=== PATIENT | male | born 1985 | race Caucasian/White ===

== ENCOUNTER 2016-08-19 23:26 | Emergency (ER) | payer MEDICARE, MEDICAID ==
[~2016-08-19] VITALS: Ht 188 cm; Wt 92.3 kg
[~2016-08-19 23:26] MED LIST: ALBU8.5H2 INHALATION; AMOX-366 PO; AZIT500T PO; BENZ-12 PO; CLOZ50TA PO; COG1 PO; DEP500ER PO; DIVA250T12 PO; DSS100 PO; KLO1T PO; LEVO500T16 PO; ZIT250 PO; [UNRECOGNIZED DRUG - CODE] PO
[2016-08-19 23:34] VITALS: BP 130/79; PULSE 115; RESP 16; O2SAT 95
[2016-08-19 23:53] VITALS: BP 130/79; PULSE 115; RESP 16; O2SAT 95
--- NOTE | 2016-08-20 00:08 | ED.REPORT ---
HPI-General Illness Date of Service Aug 20, 2016 ED Provider: Vince Marie MD Patient is a 30 year old male with a history of insomnia, schizophrenia, bipolar disorder, and anxiety who presents to the ED complaining of insomnia that has been going on for a few months. He reports that he is not on any sleep medication and that it takes 3-5 hours to fall asleep. Patient states "to be honest, I probably shouldn't be here, I know this could be done in the local clinic". He realizes that he should have waited until tomorrow to see a doctor, but he only realized this once he arrived in the ED. The patient states that he was "tired of not sleeping". He is followed by [facility] in [place] but does not have a CPIT team. The patient has previously had a sleep study. The patient reports a subjective fever and that this keeps him awake. He denies cough, shortness of breath, chest pain, or any other symptoms. Patient is a former cigarette smoker. He denies any illicit drug use. Patient states that he is taking all of his psychiatric medications as prescribed. Nursing Notes Stated Complaint: FEVER Chief Complaint: General Complaint Nursing Notes Reviewed: Yes Allergies: Coded Allergies: No Known Allergies (Verified Allergy, Unknown, 01/05/16) Scheduled Amoxicillin/Clav K 875-125 mg (Augmentin 875-125 mg) 1 Each Tablet 1 TABLET PO BID Azithromycin (Zithromax) 500 Mg Tablet 500 MG PO DAILY Azithromycin (Zithromax) 250 Mg Tablet 250 MG PO DAILY Benztropine Mes-Expunged Drug, Do Not Renew! (Benztropine Mes-Expunged Drug, Do Not Renew!) 1 Mg Tablet 1 MG PO BID Parkinson's Dose 1-2 mg Xtrapyramidal dose 1-4 mg DAILY-BID Clonazepam (Clonazepam) 1 Mg Tablet 1 MG PO BID Clozapine (Clozapine) 50 Mg Tablet 50 MG PO DAILY Clozapine-Expunged Drug, Do Not Renew! (Clozapine-Expunged Drug, Do Not Renew!) 100 Mg Tablet 150 MG PO QAM 1.5 tab in am, 3 tab at hs Clozapine-Expunged Drug, Do Not Renew! (Clozapine-Expunged Drug, Do Not Renew!) 100 Mg Tablet 300 MG PO HS 1.5 TAB QM & 3 TAB HS Divalproex Sod-Expunged Drug, Do Not Renew! (Divalproex Sod-Expunged Drug, Do Not Renew!) 500 Mg Tablet 500 MG PO BID TAKE @ NOON & BEDTIME - DO NOT CRUSH OR CHEW Divalproex-Expunged Drug, Do Not Renew! (Divalproex ER-Expunged Drug, Do Not Renew!) 250 Mg Tab.sr.24h 250 MG PO HS Docusate Sod-Expunged Drug, Do Not Renew! (Docusate Sod-Expunged Drug, Do Not Renew!) 100 Mg Capsule 100 MG PO bedtime TAKE EVERY AM & BEDTIME Levofloxacin (Levaquin) 500 Mg Tablet 500 MG PO DAILY Scheduled PRN Albuterol HFA (Proair HFA) 8.5 Gm Hfa.aer.ad 2 PUFFS INHALATION Q4H PRN PRN For Shortness of Breath Benzonatate (Tessalon Perle) 100 Mg Capsule 100 MG PO TID PRN PRN For Cough General Time Seen by MD: 00:08 Chief Complaint Other (insomnia) Hx Obtained From: Patient Arrived By: Walk-in Sudden in Onset?: No Onset Occurred: More than a week ago... (2 months) Recent Healthcare: Recent doctor visit Similar Sx Previous: Yes Past Medical History Patient History: FHx: bipolar disorder Past Medical History Notes: Reviewed and documentated persistent tachycardia since 2011. Past Medical History Bipolar mood disorder pneumonia Schizophrenia Psychosis seizure disorder anxiety panic attacks Reports: Asthma, Mental illness Past Surgical History No major surgeries Smoking History Former Smoker (quit April 2016) Social History The patient lives in an apartment alone. Alcohol Use: Denies alcohol use Drug Use: Denies drug use Other Social History: Lives alone, Local resident Ambulatory Status Independent Review of Systems Full Review of Systems Constitutional: Reports: Fever (subjective fever) Respiratory: Denies: Non-productive cough, Shortness of breath Cardiovascular: Denies: Chest pain Psychiatric: Reports: Insomnia Complete sys rev & neg: except as marked. Physical Exam Vital Signs Vital Signs Date Time Temp Pulse Resp B/P Pulse Ox O2 Delivery O2 Flow Rate FiO2 08/20/16 01:19 36.9 107 20 128/84 98 Room Air 08/19/16 23:53 36.4 115 16 130/79 95 08/19/16 23:34 36.4 115 16 130/79 95 Room Air Initial VS: Reviewed, Vital signs abnormal General/Constitutional: Awake, Alert, No acute distress Head / Eyes: Normocephalic, PERRL, EOMI ENT: Airway patent, Mucous membranes moist Neck: Supple Respiratory / Chest: Breath sounds NL, Breath sounds = bilat, No respiratory distress, No rales, No rhonchi, No wheezing Cardiovascular: Heart rate NL, Regular rhythm, Heart sounds NL, No murmurs Abdomen: Soft, Non-tender Skin: Color NL, Warm, Dry Neurologic: Oriented X3, Speech NL, No motor deficits, No sensory deficits Psychiatric: Affect NL, Mood NL, Not suicidal, Not homicidal not manic Re-Eval/Medical Decision Med Decision/Clinical Course 30-year-old male well-known to me with a history of schizophrenia. He has anxiety and insomnia. He stated that he had a fever but in closer discussion it is more of a feeling of unrest or agitation. He has no significant exam findings. He was given a single dose of hydroxyzine to take on discharge so he can sleep. Source of Hx: Old records Time of Eval: 00:55 Re-Evaluation/Progress Note: Discussed plan for treatment and discharge. The patient understands and agrees to the plan for discharge. All questions were addressed. Return to the ED warnings given. Counseled Regarding: Diagnosis, Need for follow-up, When/why to return to ED Discharge & Departure Primary Impression: Insomnia Disposition: Home Discharge Condition All VS Reviewed: Yes Condition: Stable Additional Instructions: Hydroxyzine 50 mg now to help her sleep. Talk to your doctor tomorrow about non -addicting sleep medications. Find out the after hours call number for your providers so you can call them instead of coming to the emergency room. Referrals: Adithya Moreland MD (PCP) Scribe Attestation Portions of this note were transcribed by Dinora Bennett and Alysia Byrd. I, Dr. Marie personally performed the history, physical exam and medical decision-making; I reviewed and confirmed the accuracy of the information in the transcribed note. Signed by: Dinora Bennett and Alysia Byrd, Scribe, and 0321. copies to: Adithya Moreland MD, Howard L MD Aug 20, 2016 00:08 Vernell Bennett Aug 20, 2016 00:58 Alysia Byrd Aug 20, 2016 03:21
[2016-08-20 01:19] VITALS: BP 128/84; PULSE 107; RESP 20; O2SAT 98
== END 2016-08-20 01:34 | disposition home or self-care (01) ==
LOC: SED 23:26 → EDBD 23:26 → EDUNIT# 23:26 → SED 08-20 01:34
DX: G47.00 Insomnia, unspecified (principal); F20.9 Schizophrenia, unspecified; F31.9 Bipolar disorder, unspecified; F41.0 Panic disorder [episodic paroxysmal anxiety]; J45.909 Unspecified asthma, uncomplicated; Z87.891 Personal history of nicotine dependence; Z87.01 Personal history of pneumonia (recurrent)
CPT/HCPCS: 99283; Q0177

== ENCOUNTER 2016-09-23 22:26 | Emergency (ER) | payer MEDICARE, MEDICAID ==
[~2016-09-23] VITALS: Ht 188 cm; Wt 108.2 kg
[2016-09-23 23:05] VITALS: BP 132/84; PULSE 114; RESP 16; O2SAT 95
[2016-09-24] MEDS ORDERED: 0.9% Sodium Chloride 1,000 ML IV ONE (00:14)
[2016-09-24] MEDS ORDERED: Ondansetron 2 mg/mL 2 mL Inj IVPUSH ONE (00:15)
--- NOTE | 2016-09-24 00:34 | ED.REPORT ---
HPI-Abd Pain M Under 40 Date of Service September 24, 2016 ED Provider: James Cruz MD Patient is a 30 year old male with a history of bipolar disorder who presents to the ED via EMS due to intermittent stomach pain onset 2129. Associated symptoms include a subjective fever and feeling constipated. He denies diarrhea or dysuria. The patient reports that the episode of pain lasted 30 minutes and describes it as a dull ache. Patient states that he is normally a little constipated. He is previously presented with constipation requiring cleaning out with GoLYTELY. The pain tonight has since resolved. Nursing Notes Stated Complaint: ABDOMINAL PAIN Chief Complaint: Male Abdominal Pain Nursing Notes Reviewed: Yes Allergies: Coded Allergies: No Known Allergies (Verified Allergy, Unknown, 01/05/16) Scheduled Amoxicillin/Clav K 875-125 mg (Augmentin 875-125 mg) 1 Each Tablet 1 TABLET PO BID Azithromycin (Zithromax) 500 Mg Tablet 500 MG PO DAILY Azithromycin (Zithromax) 250 Mg Tablet 250 MG PO DAILY Benztropine Mes-Expunged Drug, Do Not Renew! (Benztropine Mes-Expunged Drug, Do Not Renew!) 1 Mg Tablet 1 MG PO BID Parkinson's Dose 1-2 mg Xtrapyramidal dose 1-4 mg DAILY-BID Clonazepam (Clonazepam) 1 Mg Tablet 1 MG PO BID Clozapine (Clozapine) 50 Mg Tablet 50 MG PO DAILY Clozapine-Expunged Drug, Do Not Renew! (Clozapine-Expunged Drug, Do Not Renew!) 100 Mg Tablet 150 MG PO QAM 1.5 tab in am, 3 tab at hs Clozapine-Expunged Drug, Do Not Renew! (Clozapine-Expunged Drug, Do Not Renew!) 100 Mg Tablet 300 MG PO HS 1.5 TAB QM & 3 TAB HS Divalproex Sod-Expunged Drug, Do Not Renew! (Divalproex Sod-Expunged Drug, Do Not Renew!) 500 Mg Tablet 500 MG PO BID TAKE @ NOON & BEDTIME - DO NOT CRUSH OR CHEW Divalproex-Expunged Drug, Do Not Renew! (Divalproex ER-Expunged Drug, Do Not Renew!) 250 Mg Tab.sr.24h 250 MG PO HS Docusate Sod-Expunged Drug, Do Not Renew! (Docusate Sod-Expunged Drug, Do Not Renew!) 100 Mg Capsule 100 MG PO bedtime TAKE EVERY AM & BEDTIME Lactulose (Lactulose) 20 Gm/30 Ml Solution 20 GM PO TID Levofloxacin (Levaquin) 500 Mg Tablet 500 MG PO DAILY Scheduled PRN Albuterol HFA (Proair HFA) 8.5 Gm Hfa.aer.ad 2 PUFFS INHALATION Q4H PRN PRN For Shortness of Breath Benzonatate (Tessalon Perle) 100 Mg Capsule 100 MG PO TID PRN PRN For Cough General Time Seen by MD: 22:46 Chief Complaint Abdominal pain Hx Obtained From: Patient Arrived By: Ambulance Sudden in Onset?: Yes Onset Occurred: 1 - 4 hours ago Symptom Duration: Intermittent Progression since Onset: Resolved Location: : Diffuse Quality: Aching, Dull Severity: Current: No pain currently Recent Healthcare: No recent hospitalization, Recent doctor visit Similar Sx Previous: Yes Past Medical History Patient History: FHx: bipolar disorder Past Medical History Notes: Reviewed and documentated persistent tachycardia since 2011. Past Medical History Bipolar mood disorder pneumonia Schizophrenia Psychosis seizure disorder anxiety panic attacks Reports: Asthma, Mental illness Past Surgical History No major surgeries Smoking History Former Smoker Social History The patient lives in an apartment alone. Alcohol Use: Denies alcohol use Drug Use: Denies drug use Other Social History: Lives alone, Local resident Ambulatory Status Independent Review of Systems Constitutional: Reports: Fever (subjective) Respiratory: Denies: Non-productive cough, Shortness of breath GI: Reports: Abdominal pain, Constipation, Denies: Diarrhea Male: Denies Dysuria Complete sys rev & neg: except as marked. Physical Exam Initial Vital Signs Vital Signs (First) Date Time Temp Pulse Resp B/P Pulse Ox O2 Delivery O2 Flow Rate FiO2 09/23/16 23:05 36.8 114 16 132/84 95 Room Air Initial VS: Reviewed General/Constitutional: Awake, Alert, No acute distress Respiratory / Chest: Atraumatic, Breath sounds NL, Breath sounds = bilat, No respiratory distress Cardiovascular: Heart rate NL, Regular rhythm, Heart sounds NL Abdomen: Atraumatic, Soft, Non-tender Back: Atraumatic, Full range of motion Head / Eyes: Atraumatic, Normocephalic, PERRL, EOMI Neurologic: Oriented X3, Speech NL, No motor deficits, No sensory deficits Skin: Atraumatic, Color NL, No rash, Warm, Dry Psychiatric: Affect NL, Mood NL Interpretation & Diagnostics Lab Results Interpretation Result Diagram: 09/24/16 0034 09/24/16 0034 Test 09/24/16 00:34 09/24/16 00:45 09/24/16 00:55 09/24/16 01:04 White Blood Count 6.5th/mm3 (3.8-10.1) Red Blood Count 4.60mil/mm3 (4.40-5.80) Hemoglobin 13.9g/dL (13.8-17.2) Hematocrit 40.9% (41.0-50.0) Mean Corpuscular Volume 88.9fL (81-100) Mean Corpuscular Hemoglobin 30.2pg (27.0-35.0) Mean Corpuscular Hemoglobin Concent 34.0% (32.0-37.0) Red Cell Distribution Width 12.9% (12.3-15.4) Platelet Count 225bil/L (150-400) Neutrophils (%) (Auto) 47.8% (40-74) Lymphocytes (%) (Auto) 34.9% (14-46) Monocytes (%) (Auto) 14.0% (4-12) Eosinophils (%) (Auto) 2.0% (0-5) Basophils (%) (Auto) 0.5% (0-3) Prothrombin Time 10.6sec (8.1-12.5) Prothromb Time International Ratio 0.99ratio Sodium Level 137mEq/L (134-144) Potassium Level 4.1mEq/L (3.5-5.2) Chloride Level 98mEq/L (97-108) Carbon Dioxide Level 25mmol/L (18-29) Blood Urea Nitrogen 11mg/dL (6-20) Creatinine 0.76mg/dL (0.76-1.27) Estimat Glomerular Filtration Rate 130mL/min (>59) Glucose Level 95mg/dL (60-99) Calcium Level 9.2mg/dL (8.5-10.1) Magnesium Level 2.2mg/dL (1.6-2.6) Total Bilirubin 0.2mg/dL (0.0-1.2) Aspartate Amino Transf (AST/SGOT) 23U/L (0-50) Alanine Aminotransferase (ALT/SGPT) 21U/L (0-44) Alkaline Phosphatase 41U/L (25-150) Total Protein 7.3g/dL (6.4-8.4) Albumin 4.7g/dL (3.4-5.0) Lipase 19U/L (13-60) Hold [place] Top Tube Received (Received) Lactic Acid Level 2.3mmol/L (0.4-2.0) Urine Color Dark yellow (YELLOW) Urine Appearance Clear (CLEAR,HAZY) Urine pH 7.5 (5.0-8.0) Urine Specific [place] 1.015 (1.003-1.035) Urine Protein Negativemg/dL (NEG,TRACE) Urine Glucose (UA) Negativemg/dL (NEGATIVE) Urine Ketones Tracemg/dL (NEGATIVE) Urine Occult Blood Negative (NEGATIVE) Urine Nitrite Negative (NEGATIVE) Urine Bilirubin Negative (NEGATIVE) Urine Urobilinogen 1.0mg/dL (NORMAL) Urine Leukocyte Esterase Negative (NEGATIVE) Urine RBC 0-2/hpf (0-2) Urine WBC 0-5/hpf (0-5) Urine Epithelial Cells None/hpf (NONE-MOD) Urine Crystals None seen (NONE SEEN) Urine Bacteria None/hpf (NONE-FEW) Urine Hyaline Casts None/lpf (NONE) Urine Granular Casts None seen (NONE SEEN) Urine Waxy Casts None seen (NONE SEEN) Urine Red Blood Cell Casts None seen (NONE SEEN) Urine White Blood Cell Casts None seen (NONE SEEN) Urine Mucus None seen (None Seen) Urine Trichomonas None seen (NONE SEEN) Urine Yeast None (NONE SEEN) Urinalysis Comment None Urine Culture Reflexed Not indicated Re-Eval/Medical Decision Med Decision/Clinical Course 30-year-old bipolar patient presents with constipation and crampy abdominal pain, but a benign exam and benign labs. Given a lactulose course to clean him out, and fiber supplementation for the indefinite future. Follow up with PCP. Prompt return of force. Re-Evaluation/Progress : Time of Eval: 22:50 Re-Evaluation/Progress Note: Discussed plan for discharge during initial interview. The patient understands and agrees to the plan for discharge. All questions were addressed. Counseled Regarding: Diagnosis, Lab results, Need for follow-up, When/why to return to ED Patient Discharge & Departure Primary Impression: Constipation Constipation type: unspecified constipation type Qualified Code: K59.00 - Constipation, unspecified Additional Impression: Abdominal pain Abdominal location: generalized Qualified Code: R10.84 - Generalized abdominal pain Disposition: Home Discharge Condition All VS Reviewed: Yes Condition: Stable Patient Instructions: Acute Abdominal Pain (ED), Constipation (ED) Additional Instructions: You need to add fluid and fiber to your diet on an everyday basis for the rest of your life. For now, begin lactulose 2 tablespoon three times daily until you are having two or three bowel movements today. Then stop. Begin Metamucil two capsules twice daily, with 12 ounces of clear fluid each time. Follow-up with your doctor in the office. Return if any immediate issues. Referrals: Adithya Moreland MD (PCP) Katherineibkeegan Attestation Portions of this note were transcribed by Dinora Bennett. I, Dr. Cruz personally performed the history, physical exam and medical decision-making; I reviewed and confirmed the accuracy of the information in the transcribed note. Signed by: Ozzy Ac, 09/24/16 at 0145 copies to: Adithya Moreland MD, Christopher W MD September 24, 2016 00:34 Vernell Bennett September 24, 2016 00:49
[2016-09-24 00:45] LABS: BASOPHILS % (AUTO) 0.5 % (0-3); Mean Corpuscular Hemoglobin 30.2 pg (27.0-35.0); Mean Corpuscular Volume 88.9 fL (81-100); NEUTROPHILS % (AUTO) 47.8 % (40-74); Platelet Count 225 bil/L (150-400)
[2016-09-24 01:09] LABS: INR 0.99 ratio
[2016-09-24 01:16] LABS: Magnesium 2.2 mg/dL (1.6-2.6)
[2016-09-24 01:16] LABS: APPEARANCE,URINE CLEAR (CLEAR,HAZY); COLOR,URINE DARK YELLOW (YELLOW); OCCULT BLOOD,URINE NEGATIVE (NEGATIVE); PH,URINE 7.5 (5.0-8.0)
[2016-09-24] MEDS ORDERED: Lactulose 20 Gm/30 mL 30 mL Syrup PO ONE (01:30)
[2016-09-24] MEDS ORDERED: LACT10SO60 PO (01:35)
[2016-09-24 01:59] VITALS: BP 130/80; PULSE 100; RESP 16; O2SAT 97
== END 2016-09-24 02:00 | disposition home or self-care (01) ==
LOC: EDUNIT# 22:26 → SED 22:26 → EDBD 22:26 → SED 09-24 02:00
DX: K59.00 Constipation, unspecified (principal); Z87.891 Personal history of nicotine dependence; Z79.899 Other long term (current) drug therapy
CPT/HCPCS: 36415; 80053; 81000; 83605; 83690; 83735; 85025; 85610; 96361; 96374; 99284; J2405; J7030

== ENCOUNTER 2016-12-23 23:58 | Observation (INO) | payer MEDICARE, MEDICAID ==
[~2016-12-23] VITALS: Ht 188 cm; Wt 112.3 kg
[~2016-12-23 23:58] MED LIST changes: +LACT10SO60 PO
[2016-12-24] VITALS (7 sets, daily range): BP systolic 115–141; BP diastolic 70–95; PULSE 78–105; RESP 14–20; O2SAT 94–97
--- NOTE | 2016-12-24 | ED.REPORT ---
HPI-Abd Pain M Under 42 Date of Service Dec 24, 2016 ED Provider: James Cruz MD A 31 year old male with a history of schizophrenia, bipolar disorder, psychosis , seizure disorder, anxiety and panic attacks is brought to the ED via EMS due to abdominal pain. The pt began experiencing nonradiating lower abdominal pain 4 -5 hours ago. He rates the pain at 5/10. The pt denies dysuria, productive cough , diarrhea, constipation, nausea or vomiting. Denies melena, hematochezia, bijan colored stools. He has had dark urine. Denies fevers chills sweats. No recollection of similar prior pain. He has been taking all of his normal medications. Nursing Notes Stated Complaint: ABDOMINAL PAIN Nursing Notes Reviewed: Yes Allergies: Coded Allergies: No Known Allergies (Verified Allergy, Unknown, 01/05/16) Scheduled Amoxicillin/Clav K 875-125 mg (Augmentin 875-125 mg) 1 Each Tablet 1 TABLET PO BID Azithromycin (Zithromax) 500 Mg Tablet 500 MG PO DAILY Azithromycin (Zithromax) 250 Mg Tablet 250 MG PO DAILY Benztropine Mes-Expunged Drug, Do Not Renew! (Benztropine Mes-Expunged Drug, Do Not Renew!) 1 Mg Tablet 1 MG PO BID Parkinson's Dose 1-2 mg Xtrapyramidal dose 1-4 mg DAILY-BID Clonazepam (Clonazepam) 1 Mg Tablet 1 MG PO BID Clozapine (Clozapine) 50 Mg Tablet 50 MG PO DAILY Clozapine-Expunged Drug, Do Not Renew! (Clozapine-Expunged Drug, Do Not Renew!) 100 Mg Tablet 150 MG PO QAM 1.5 tab in am, 3 tab at hs Clozapine-Expunged Drug, Do Not Renew! (Clozapine-Expunged Drug, Do Not Renew!) 100 Mg Tablet 300 MG PO HS 1.5 TAB QM & 3 TAB HS Divalproex Sod-Expunged Drug, Do Not Renew! (Divalproex Sod-Expunged Drug, Do Not Renew!) 500 Mg Tablet 500 MG PO BID TAKE @ NOON & BEDTIME - DO NOT CRUSH OR CHEW Divalproex-Expunged Drug, Do Not Renew! (Divalproex ER-Expunged Drug, Do Not Renew!) 250 Mg Tab.sr.24h 250 MG PO HS Docusate Sod-Expunged Drug, Do Not Renew! (Docusate Sod-Expunged Drug, Do Not Renew!) 100 Mg Capsule 100 MG PO bedtime TAKE EVERY AM & BEDTIME Lactulose (Lactulose) 20 Gm/30 Ml Solution 20 GM PO TID Levofloxacin (Levaquin) 500 Mg Tablet 500 MG PO DAILY Scheduled PRN Albuterol HFA (Proair HFA) 8.5 Gm Hfa.aer.ad 2 PUFFS INHALATION Q4H PRN PRN For Shortness of Breath Benzonatate (Tessalon Perle) 100 Mg Capsule 100 MG PO TID PRN PRN For Cough General Time Seen by MD: 00:00 Chief Complaint Abdominal pain Hx Obtained From: Patient, EMS Arrived By: Ambulance Sudden in Onset?: No Onset Occurred: 1 - 4 hours ago Symptom Duration: Since onset Recent Healthcare: Recent doctor visit Similar Sx Previous: Yes Past Medical History Patient History: FHx: bipolar disorder Past Medical History Notes: Reviewed and documentated persistent tachycardia since 2011. Past Medical History Bipolar mood disorder pneumonia Schizophrenia Psychosis seizure disorder anxiety panic attacks Reports: Asthma, Mental illness Past Surgical History No major surgeries Smoking History Former Smoker Social History The patient lives in an apartment alone. Alcohol Use: Denies alcohol use Drug Use: Denies drug use Other Social History: Lives alone, Local resident Ambulatory Status Independent Review of Systems Respiratory: Denies: Non-productive cough, Shortness of breath Cardiovascular: Denies: Chest pain GI: Reports: Abdominal pain, Denies: Constipation, Diarrhea, Nausea, Vomiting Male: Denies Dysuria Musculoskeletal: Denies: Back pain, Neck pain Complete sys rev & neg: except as marked. Physical Exam Initial Vital Signs Vital Signs (First) Date Time Temp Pulse Resp B/P Pulse Ox O2 Delivery O2 Flow Rate FiO2 12/24/16 00:30 36.9 105 16 139/95 94 Room Air Initial VS: Reviewed General/Constitutional: Awake, Alert Respiratory / Chest: Atraumatic, Breath sounds NL, Breath sounds = bilat, No respiratory distress Cardiovascular: Heart rate NL, Regular rhythm, Heart sounds NL Abdomen: Atraumatic, Soft, Non-tender ticklish during abdominal exam Back: Atraumatic, Full range of motion Head / Eyes: Atraumatic, Normocephalic, PERRL, EOMI ENT: Atraumatic, Airway patent, Mucous membranes moist Neurologic: Oriented X3, Speech NL, No motor deficits, No sensory deficits Neck: Atraumatic, Supple, Full range of motion Upper Extremity / MS: Atraumatic, Full range of motion Lower Extremity / Pelvis / MS: Atraumatic, Full range of motion Skin: Atraumatic, Color NL, No rash, Warm, Dry Psychiatric: Affect NL, Mood NL Interpretation & Diagnostics Lab Results Interpretation Result Diagram: 12/24/16 0030 12/24/16 0030 Test 12/24/16 00:30 12/24/16 00:53 White Blood Count 10.4th/mm3 (3.8-10.1) Red Blood Count 4.87mil/mm3 (4.40-5.80) Hemoglobin 14.8g/dL (13.8-17.2) Hematocrit 43.4% (41.0-50.0) Mean Corpuscular Volume 89.1fL (81-100) Mean Corpuscular Hemoglobin 30.4pg (27.0-35.0) Mean Corpuscular Hemoglobin Concent 34.1% (32.0-37.0) Red Cell Distribution Width 13.2% (12.3-15.4) Platelet Count 217bil/L (150-400) Neutrophils (%) (Auto) 78.4% (40-74) Lymphocytes (%) (Auto) 10.4% (14-46) Monocytes (%) (Auto) 9.8% (4-12) Eosinophils (%) (Auto) 0.5% (0-5) Basophils (%) (Auto) 0.2% (0-3) Prothrombin Time 10.7sec (8.1-12.5) Prothromb Time International Ratio 1.00ratio Sodium Level 143mEq/L (134-144) Potassium Level 3.8mEq/L (3.5-5.2) Chloride Level 101mEq/L (97-108) Carbon Dioxide Level 26mmol/L (18-29) Blood Urea Nitrogen 17mg/dL (6-20) Creatinine 0.94mg/dL (0.76-1.27) Estimat Glomerular Filtration Rate 101mL/min (>59) Glucose Level 130mg/dL (60-99) Calcium Level 9.3mg/dL (8.5-10.1) Magnesium Level 2.2mg/dL (1.6-2.6) Total Bilirubin 0.3mg/dL (0.0-1.2) Aspartate Amino Transf (AST/SGOT) 31U/L (0-50) Alanine Aminotransferase (ALT/SGPT) 29U/L (0-44) Alkaline Phosphatase 41U/L (25-150) Total Protein 7.6g/dL (6.4-8.4) Albumin 4.7g/dL (3.4-5.0) Lipase 20U/L (13-60) Urine Color Dark yellow (YELLOW) Urine Appearance Cloudy (CLEAR,HAZY) Urine pH Color interference Urine Specific [place] 1.037 (1.003-1.035) Urine Protein Color interferencemg/dL Urine Glucose (UA) Color interferencemg/dL Urine Ketones Color interferencemg/dL Urine Occult Blood Color interference Urine Nitrite Color interference Urine Bilirubin Color interference Urine Urobilinogen Color interferencemg/dL Urine Leukocyte Esterase Color interference Urine RBC 3-10/hpf (0-2) Urine WBC 0-5/hpf (0-5) Urine Epithelial Cells Few/hpf (NONE-MOD) Urine Crystals None seen (NONE SEEN) Urine Bacteria Few/hpf (NONE-FEW) Urine Hyaline Casts None/lpf (NONE) Urine Granular Casts Occasional (NONE SEEN) Urine Waxy Casts None seen (NONE SEEN) Urine Red Blood Cell Casts None seen (NONE SEEN) Urine White Blood Cell Casts None seen (NONE SEEN) Urine Mucus Present (None Seen) Urine Trichomonas None seen (NONE SEEN) Urine Yeast None (NONE SEEN) Urinalysis Comment None Urine Culture Reflexed Not indicated X-Ray Abdominal Interpretation atelectasis at bilateral bases constipation no evidence of obstruction no hepatomegaly Interpretation / Wet Read by: Interpret - ED physician CT Abd / Pelvis Interpretation CONCLUSION: Long segment colonic wall thickening of the splenic flexure, nonspecific, possible colitis. Neoplasm is not excluded. Severe fecal loading of the capacious colon. Interpretation / Wet Read by: Interpret - Radiologist Re-Eval/Medical Decision Med Decision/Clinical Course 31-year-old presents with abdominal pain steadily worsening over the last 5-6 hours now, with findings of very dark urine and marked bilirubinuria. He also has normal LFTs otherwise. His CT scan of his abdomen shows significant constipation, but a worrisome segment of colon 6 cm long, quite thickened and nondistended, but without obstruction. Although this is colitis or neoplasm is not clear. His younger age would suggest colitis. He needs an ultrasound this morning to evaluate his biliary tract further, and is beginning a clean out now for possible colonoscopy. Admitted now observation status for evaluation as above. Source of Hx: Old records Re-Evaluation/Progress #1: Time of Eval: 01:43 Patient Status: Condition improved Re-Evaluation/Progress Note: Pt rechecked, whose pain has improved. The need for CT scan is discussed. Re-Evaluation/Progress #2: Time of Eval: 02:59 Patient Status: Condition improved Re-Evaluation/Progress Note: Pt rechecked, who is resting comfortably. The diagnosis and plan for admission are discussed. The pt understands and agrees with the plan. All questions are addressed at this time. Consultation : Referral / Consult Name: Otf Pedraza MD Consulted With: Hospitalist Call Returned at: 02:58 Print Shop Helper: Agrees with eval, Agrees with plan, Accepts admit Note: Spoke with Dr. Pedraza, hospitalist, regarding pt's case. Dr. Pedraza agrees with the evaluation and agrees to admit the pt. Counseled Regarding: Diagnosis, Lab results, Need for admission Patient Discharge & Departure Primary Impression: Colonic thickening Additional Impressions: Bilirubinuria Biliary obstruction Abdominal pain Constipation Disposition: ADMITTED TO HOSPITAL Discharge Condition All VS Reviewed: Yes Condition: Stable Referrals: Adithya Moreland MD (PCP) Scribe Attestation Portions of this note were transcribed by Oliva Conley. I, Dr. Cruz personally performed the history, physical exam and medical decision-making; I reviewed and confirmed the accuracy of the information in the transcribed note. copies to: Adithya Moreland MD, Christopher W MD Dec 24, 2016 00:00 OLIVA CONLEY Dec 24, 2016 00:39
[2016-12-24] MEDS ORDERED: 0.9% Sodium Chloride 1,000 ML IV ONE (00:10)
[2016-12-24 00:41] LABS: BASOPHILS % (AUTO) 0.2 % (0-3); EOSINOPHILS % (AUTO) 0.5 % (0-5); MONOCYTES % (AUTO) 9.8 % (4-12); Mean Corpuscular Hemoglobin 30.4 pg (27.0-35.0); Mean Corpuscular Volume 89.1 fL (81-100); NEUTROPHILS % (AUTO) 78.4 % (40-74); Platelet Count 217 bil/L (150-400)
[2016-12-24 01:01] LABS: COLOR,URINE DARK YELLOW (YELLOW)
[2016-12-24 01:02] LABS: APPEARANCE,URINE CLOUDY (CLEAR,HAZY); OCCULT BLOOD,URINE COLOR INTERFERENCE (NEGATIVE); PH,URINE COLOR INTERFERENCE (5.0-8.0); UROBILINOGEN,URINE COLOR INTERFERENCE mg/dL (NORMAL)
[2016-12-24 01:12] LABS: Magnesium 2.2 mg/dL (1.6-2.6)
[2016-12-24] MEDS ORDERED: PEG/Electrolytes 4,000 mL Solution PO ONE (03:00)
[2016-12-24] MEDS ORDERED: Ondansetron 2 mg/mL 2 mL Inj IVPUSH PRN (03:05)
[2016-12-24] MEDS ORDERED: Alum-Mag Hydrox-Simeth 30 mL Suspension PO PRN (03:05)
[2016-12-24] MEDS ORDERED: Polyethylene Glycol (PEG) 17 Gm Powder PO PRN (03:05)
--- NOTE | 2016-12-24 04:01 | PCM.HPMED ---
Subjective Date of Service Dec 24, 2016 Primary Provider: Admitting Physician: Primary Care Physician: Adithya Moreland MD Attending Physician: Admit Status: From the Emergency Department, 23-Hour Observation Chief Complaint: Abdominal pain. . History of Present Illness: Clifton wells is a 31-year-old male with a past medical history significant for schizophrenia, bipolar disorder, psychosis, seizure disorder, anxiety and panic attacks who presented to [facility] emergency department via EMS for abdominal pain. The patient began experiencing lower abdominal pain three to four hours ago. He reports that his abdominal pain is intermittent and dull in quality. He rated the pain at + 5/10 in severity. His abdominal pain does not radiate. His abdominal pain is located in lower quadrants bilaterally. He is currently not in any pain. He denies headache, vision changes, sore throat, shortness of breath, chest pain, nausea, vomiting, fever, chills, night sweats, dysuria, diarrhea or constipation. His last bowel movement was 1-2 days ago. He reports that his bowel movement was hard and he had to strain a little bit. He has been taking all of his normal medications. He has no other complaints. Vital signs in the ER: Temperature 36.9. Pulse 105. Respiratory rate 16. Blood pressure 139/95. Pulse ox 94% on room air. The patient received 1 L of NS and ketorolac IV 30 mg 1[address] PCP is Dr. Adithya Moreland. . Review of Systems: A comprehensive review of systems was conducted with the patient and found to be negative except as above in the History of Present Illness. . Allergies Coded Allergies: No Known Allergies (Verified Allergy, Unknown, 01/05/16) Home Medications Medication dosages not yet verified as medication reconciliation has not been obtained: Benztropine 1 mg twice a day. Clonazepam 1 mg twice a day Clozapine unknown dose. Depakote unknown dose. Docusate sodium 100 mg daily at bedtime. . PMH 1. Bipolar mood disorder. 2. Schizophrenia. 3. Seizure disorder. 4. Anxiety with panic attacks. 5. Asthma. . Surgical History 1. Possible collarbone repair. . Family History Mother who at 52 years of age and cause was unclear. Father who has diabetes mellitus type II. 2 brothers who are healthy. . Social History Hx Alcohol Use: No Hx Substance Use: No Hx Tobacco Use: Yes Smoking Status: Former Smoker (05/16 PPD 6-7 years, quit 04/2016) Additional Information He has single and never been . He has no children. He is unemployed. He lives with his family. . Exam Vital Signs Vital Sign - Last Date Time Temp Pulse Resp B/P Pulse Ox O2 Delivery O2 Flow Rate FiO2 12/24/16 03:00 36.8 104 14 128/81 94 Room Air Intake and Output 12/23/16 12/23/16 12/24/16 Cumulative From/Thru 14:58 22:58 06:58 12/24/16 00:30 - 12/24/16 01:03 Intake Total 1000 ml 1000 ml Balance 1000 ml 1000 ml Intake IV Total 1000 ml 1000 ml Exam General: Young male lying in bed and in no acute distress, well-developed, well- nourished, appropriately interactive. HEENT: Normocephalic, atraumatic. External ears without defect. Pupils equal, round, and reactive to light.. Anicteric sclerae, moist conjunctivae, and no lid lag. Oropharynx free of erythema and cobble stoning with moist mucosa. Neck: Supple with full range of motion. No jugular venous distension. No bruits. No lymphadenopathy or thyromegaly. Cardiovascular: Regular rhythm, mildly tachycardic without murmurs, rubs, or gallops appreciated Pulmonary: Clear to auscultation bilaterally without crackles, wheezes, or rhonchi. Normal respiratory effort with no use of accessory muscles. Abdomen: Soft, mild tenderness to palpation in lower abdomen, nondistended, bowel sounds present. No hepatosplenomegaly or masses appreciated. Extremities: No clubbing, cyanosis, or edema. Skin: Normal temperature, turgor, and texture; no rash, ulcers, or subcutaneous nodules appreciated. Neurological: Cranial nerves grossly intact. Normal muscle strength, tone, and bulk. Reflexes, coordination, and sensory function within normal limits. No known gait impairment. Psychiatric: Normal mood and affect. Slightly slurred speech. Alert and oriented to person, place, and time. . Lab and Diagnostics Labs Item Value Date Time Urine Color Dark yellow 12/24/1652 Urine Appearance Cloudy 12/24/1652 Urine pH Color interference 12/24/1652 Urine Specific [place] 1.037 12/24/1652 Urine Protein Color interference mg/dL 12/24/1652 Urine Glucose (UA) Color interference mg/dL 12/24/16 005 Urine Ketones Color interference mg/dL 12/24/16 005 Urine Occult Blood Color interference 12/24/16 005 Urine Nitrite Color interference 12/24/16 005 Urine Bilirubin Color interference 12/24/16 005 Urine Urobilinogen Color interference mg/dL 12/24/16 005 Urine Leukocyte Esterase Color interference 12/24/16 005 Urine RBC 3-10 /hpf 12/24/16 005 Urine WBC 0-5 /hpf 12/24/16 005 Urine Epithelial Cells Few /hpf 12/24/16 005 Urine Crystals None seen 12/24/16 005 Urine Bacteria Few /hpf 12/24/16 005 Urine Hyaline Casts None /lpf 12/24/16 005 Urine Granular Casts Occasional 12/24/16 005 Urine Waxy Casts None seen 12/24/16 005 Urine Red Blood Cell Casts None seen 12/24/16 005 Urine White Blood Cell Casts None seen 12/24/16 005 Urine Mucus Present 12/24/16 005 Urine Trichomonas None seen 12/24/16 005 Urine Yeast None 12/24/16 005 Urinalysis Comment None 12/24/1652 Urine Culture Reflexed Not indicated 12/24/16 005 Item Value Date Time Prothrombin Time 10.7 sec 12/24/16 0030 Prothromb Time International Ratio 1.00 ratio 12/24/16 003 Item Value Date Time Calcium Level 9.3 mg/dL 12/24/16 0030 Magnesium Level 2.2 mg/dL 12/24/16 0030 Total Bilirubin 0.3 mg/dL 12/24/16 0030 Aspartate Amino Transf (AST/SGOT) 31 U/L 12/24/16 0030 Alanine Aminotransferase (ALT/SGPT) 29 U/L 12/24/16 0030 Alkaline Phosphatase 41 U/L 12/24/16 0030 Total Protein 7.6 g/dL 12/24/16 0030 Albumin 4.7 g/dL 12/24/16 0030 Lipase 20 U/L 12/24/16 0030 Result Diagram: 12/24/16 0030 12/24/16 0030 X-Rays, CTs and MRIs Wet Read by ED physician X-Ray Abdominal Interpretation atelectasis at bilateral bases constipation no evidence of obstruction no hepatomegaly CT Abd / Pelvis Interpretation read: CONCLUSION: Long segment colonic wall thickening of the splenic flexure, nonspecific, possible colitis. Neoplasm is not excluded. Severe fecal loading of the capacious colon. Mariya De Luna MD 12/24/16. . Assessment & Plan Clifton wells is a 31-year-old male with a past medical history significant for schizophrenia, bipolar disorder, psychosis, seizure disorder, anxiety and panic attacks who presented to [facility] emergency department via EMS for abdominal pain. 1. Acute abdominal pain, present on admission. Active. - Likely call center support representative of has fecal impaction versus colitis versus less likely neoplasm. - Acute abdominal series demonstrated fecal impaction, as above. - CT abdomen and pelvis with contrast demonstrated long segment colonic wall thickening of the splenic flexure, nonspecific, possible colitis and neoplasm is not excluded, as above. - Patient was started in the ED on GoLYTELY bowel preparation for possible colonoscopy in the next several days. - Patient received ketorolac IV 30 mg x1. Not currently in pain. Avoid narcotics due to fecal impaction. - Started IV fluid hydration with NS at 100 mL/hr. - Day team to consider GI consult in the morning for possible colonoscopy to assess colonic wall thickening and possible colitis versus neoplasm. Chronic problems: 2. Anxiety with panic attacks, present on admission. Stable. - Continue clonazepam 1 mg twice daily once medication reconciliation is obtained. 3. Schizophrenia, present on admission. Stable. - Continue clozapine unknown dose and benztropine 1 mg twice daily once medication reconciliation is obtained.. 4. Seizure disorder, present on admission. Stable. - Continue Depakote unknown dose once medication reconciliation is obtained.. Medication reconciliation has not yet been obtained. Day team to reconcile medications. PRN antiemetics: Zofran and Maalox. PRN bowel regimen: Senna and MiraLAX. PRN analgesics: Tylenol. Patient is admitted under observation status with expected length of stay less than 2 midnights due to severity of presenting symptoms, risk of adverse event, and complexity of treatment plan. . VTE Prophylaxis: Sub-Q Heparin (Unfractionated) Resuscitation Status: CPR: Attempt Resuscitation copies to: Adithya Moreland MD, [place] M DO Dec 24, 2016 03:06
[2016-12-24] MEDS: 0.9% Sodium Chloride 1,000 ML IV SCH ×2 (04:43→14:42)
--- NOTE | 2016-12-24 05:18 | NUR ---
admit pt admitted to [facility] room 1026 via gurney. he was able to ambulate to bed without assistance. he is alert and oriented x3. denies any pain or discomfort. VSS and afebrile. NS started and pt has began drinking the Golytely that was ordered in the ED. he is aware that other then the Golytely he is NPO at this time. pt unsure of his last bowel movement he says he doesn't keep track but that he had one maybe 2 days ago. abdomen non-tender, no distention but bowel tones hypoactive/absent. nurse was unable to complete med rec as pt did not know his dosages or frequency of when he took his meds. will obtain med list from pharmacy [facility] this morning. pt has been oriented to room, call light and bed controls. care continues.
--- NOTE | 2016-12-24 06:27 | NUR ---
Golytely/GI pt has drank 3/4 of the golytely and has said he is feeling nauseated and like he can not drink anymore. BT still hypoactive no BM as of yet. pt was told to take a break for now but try to drink some more when he is able to. he denies the need for anti-emetics.
--- NOTE | 2016-12-24 08:26 | DRSVH ---
PROCEDURE: X-RAY ACUTE ABDOMINAL SERIES ([id number]) INDICATIONS: Lower abdominal pain TECHNIQUE: One view chest and two views of the abdomen were acquired. COMPARISON: [facility], , ABD ACUTE SERIES, 05/21/2014, 11:10. FINDINGS: Surgical changes and devices: None. Chest: Lungs are clear except for slight stranding at the left lung base laterally. Heart size is n ormal. No pleural effusions. No pneumoperitoneum. Abdomen: Bowel gas pattern is normal. No suspicious calcifications. Visualized solid organ contour s appear normal. Bones: No suspicious bony lesions. IMPRESSION: Moderate colonic constipation bilaterally, no other source of lower abdominal pain is see n. A mild degree of lateral left lung base alveolar stranding is present, and it is unclear whether this could represent atelectasis or mild or early pneumonia. Dictated by: Da Sharpe M.D. on 12/24/2016 at 8:24 Approved by: Da Shrape M.D. on 12/24/2016 at 8:24
[2016-12-24 08:37] LABS: BASOPHILS % (AUTO) 0.1 % (0-3); EOSINOPHILS % (AUTO) 1.4 % (0-5); MONOCYTES % (AUTO) 18.7 % (4-12); Mean Corpuscular Hemoglobin 30.1 pg (27.0-35.0); Mean Corpuscular Volume 88.6 fL (81-100); NEUTROPHILS % (AUTO) 57.4 % (40-74); Platelet Count 180 bil/L (150-400)
[2016-12-24] MEDS ORDERED: CLOZ100T6 PO ×2 (09:22)
[2016-12-24] MEDS ORDERED: FLUO40CA PO (09:22)
[2016-12-24] MEDS ORDERED: DIVA500T14 PO (09:22)
[2016-12-24] MEDS ORDERED: BENZ1TAB7 PO ×2 (09:22)
[2016-12-24] MEDS ORDERED: KLO1T PO (09:22)
[2016-12-24] MEDS ORDERED: DOCU-41 PO (09:22)
[2016-12-24] MEDS: Heparin 5,000 Unit/mL Inj SUBQ SCH ×2 (09:35→17:28)
--- NOTE | 2016-12-24 09:48 | DRSVH ---
PROCEDURE: CT ABDOMEN AND PELVIS WITH CONTRAST ([id number]) INDICATIONS: abdo pain, hyperbilirubinemia TECHNIQUE: After the administration of intravenous contrast, 5 mm thick sections acquired from the diaphragm to the symphysis. 5 mm coronal and sagittal reformats were acquired. For radiation dose reduction, the following was used: automated exposure control, adjustment of mA and/or kV according to patient siz e. COMPARISON: [facility], CR, XR ABD ACUTE SERIES 3VW, 12/24/2016, 0:44. FINDINGS: Image quality: Excellent. ABDOMEN: Lung bases: Atelectasis noted in the lung bases. Heart size is normal. Solid organs: Liver and spleen are normal in size and enhancement. Gallbladder is within normal hanna its. Biliary system is non dilated. Pancreas enhances normally. No adrenal nodules. Kidneys demon strate normal size and enhancement, without hydronephrosis. Peritoneum and bowel: Circumferential wall thickening involving the splenic flexure of the colon is n oted. Large amount of stool seen throughout the colon. No free fluid or air. The appendix is normal. Nodes and vessels: No retroperitoneal or mesenteric adenopathy by size criteria. Aorta and inferior vena cava are normal in size. Miscellaneous: No ventral hernias. PELVIS: Genitourinary: Bladder wall thickness is normal. Miscellaneous: No adenopathy. Small fat containing inguinal hernias. Bones: No suspicious bony lesions. No vertebral body compression fractures. IMPRESSION: 1. Circumferential wall thickening involving the splenic flexure of the colon which could represent c olitis versus colon carcinoma. Recommend colonoscopy for further evaluation. 2. Severe fecal loading throughout the colon. Please correlate with clinical data. Dictated by: Fabi Elder MD, PhD on 12/24/2016 at 9:40 Approved by: Fabi Elder MD, PhD on 12/24/2016 at 9:46
--- NOTE | 2016-12-24 10:25 | NUR ---
GI Patient was able to have a very large bowel movement this AM with liquid and formed stool. Stating "I feel so much better.". Denies pain in his abdomen. Patient finished Golytely at 0700 this AM.
--- NOTE | 2016-12-24 16:52 | NUR ---
Social Work: Initial Assessment/Multi-Disciplinary Rounds D: EMR reviewed. Please see Initial Assessment linked to this note for more information. Pt is a 31 y/o male admitted [place] with no readmit risk score assigned. Admitted for Colitis v. Colonic Neoplasm/Possible Biliary per H&P. Pt's insurance is Medicare and Medicaid. PCP is Adithya Moreland MD. SW met with pt at bedside to conduct initial assessment. Pt was alert and oriented x3. SW explained role and wrote phone number on white board. SW provided [facility] Discharge Planning Checklist and encouraged pt to contact SW for any discharge planning questions. Pt discussed in multidisciplinary rounds. Per MD, pt's pain is improving. Pt sees mental health providers through [facility] and has diagnoses of Bipolar and Schizophrenia. No SW needs identified during multidisciplinary rounds at this time, no MD orders received. Pt lives at home alone in [facility]. Pt states he is independent with all ADLs. Pt does not drive. Pt sees MH providers regularly and is seen by [facility] for MH. Pt states he has the capacity to care for himself at home - pt requested SW contact his father regarding discharge planning (Rogelio Rodriguez [phone]). Pt arrived EMS and will need [facility] transport home. No SW needs identified at this time - SW will follow up with [facility] to determine potential needs related to pt's MH diagnoses and continued care. Pt declined DPOA/advanced directive ppw. A: Pt who is independent at baseline and has the capacity for self-care at this time. Pt has [facility] visits through [facility] 1x a month for MH needs. Pt sees MH provider - could not recall name. SW to follow-up for any potential MH needs through [facility]. P: Pt will need [facility] transport home - pt arrive via EMS. Pt states he has [facility] through [facility] for MH. Pt states he is independent. SW will continue to follow for potential MH needs and update [facility] through [facility] of pt's hospital stay. Pt could not recall phone number but states a woman from [facility] named Sarah comes to check in on him 1x month. ESHA Rojas Addendum: 12/24/16 at 1659 by ANAHY BRYANT Amended: Links added.
[2016-12-24] MEDS ORDERED: Divalproex (QD) 500 mg ER24 Tablet PO SCH (21:00)
[2016-12-25] MEDS: 0.9% Sodium Chloride 1,000 ML IV SCH ×2 (00:37→10:00)
[2016-12-25 00:41] VITALS: BP 116/78; PULSE 84; RESP 20; O2SAT 95
[2016-12-25] MEDS: Heparin 5,000 Unit/mL Inj SUBQ SCH ×2 (01:55→10:27)
--- NOTE | 2016-12-25 05:10 | NUR ---
Mobility / meds Pt ambulated multiple times in hallway, denies pain, denies nausea, tolerated diet well. Med rec verified with home meds pack brought in by family; Md notified and meds restarted; home meds delivered to pharmacy for safe keeping until discharge. Pt observed sleeping well through night. Hourly rounding ongoing.
[2016-12-25 06:13] VITALS: BP 119/74; PULSE 81; RESP 18; O2SAT 96
[2016-12-25] MEDS ORDERED: DOCU-41 PO (08:19)
[2016-12-25] MEDS ORDERED: POLY17PO6 PO (08:19)
[2016-12-25] MEDS ORDERED: SENN-133 PO (08:19)
[2016-12-25 08:26] VITALS: BP 123/72; PULSE 91; RESP 20; O2SAT 94
--- NOTE | 2016-12-25 09:54 | PCM.DIMED ---
Discharge Instructions Date of Service Dec 25, 2016 Dates of Hospitalization Dec 24, 2016 at 03:10 Discharge Diagnosis Discharge Diagnosis acute dx Stercoral Colitis chronic dx Anxiety with panic attacks Schizophrenia Seizure disorder Diet Discharge Diet: No restrictions Activity Discharge Activity: No restrictions Call your provider Call your provider for: Other (severe constipation) Patient Instructions Patient Instructions You were hospitalized with severe abdominal pain likely due to large stools burden in your colon and inflammation. You responded well with GoLYTELY solution , made multiple BM appropriately Please continue aggressive bowel regimen as prescribed, as your condition are likely to continue with your psychiatric medicines. Take Colace 100mg twice a day, Senna 16.2mg twice a day. Take Miralax twice a day. If you start seeing loose stools, please adjust these medicine frequency to daily. Please follow up with your primary doctor in 1-2weeks Follow-up Provider: Adithya Moreland MD Follow-up with PCP in: 1 week Alexei Thorne MD Dec 25, 2016 09:40
--- NOTE | 2016-12-25 11:24 | NUR ---
Morning Medications Morning medications non-administered d/t patient drowsiness, able to arouse with voice/light touch, vital signs stable, but patient could not stay awake long enough to take medications. MD aware and ok'd to hold meds. Will continue to monitor.
--- NOTE | 2016-12-25 12:31 | NUR ---
Social Work- Readiness for D/C Data: EMR reviewed. Pt is on day 1 of hospitalization for colitis per H&P. Pt discussed in multidisciplinary rounds. Pt is medically stable for d/c. Pt has been very somnolent this morning. SW attempted to update pt at bedside, pt was too somnolent to interact. Pt's father Rogelio is NOK and photoresist contact printer related to d/c planning. T/C to Rogelio regarding d/c today. Rogelio confirms that he will be able to pick patient up this afternoon around 1530. RN updated. SW will continue to follow. Assessment: Pt who is independent at baseline. Plan: Pt to d/c home today. Pt's father to transport via POV. SW will continue to follow. ESHA Siddiqi
[2016-12-25 12:41] VITALS: BP 116/76; PULSE 92; RESP 15; O2SAT 93
--- NOTE | 2016-12-25 15:29 | NUR ---
Discharge Patient off unit at 1526 ambulating on own accompanied with father, and with all belongings. Home medications obtained from pharmacy and returned to patient. IV catheter DC'd intact, vital signs stable. Went over discharge instructions including medications with patient and father. Patient and father verbalized understanding. Addendum: 12/25/16 at 1549 by RADHAMES CHOUDHURY RN prescriptions faxed to [facility] pharmacy per fathers request.
--- NOTE | 2016-12-25 16:15 | PCM.DC.MED ---
Discharge Summary Date of Service Dec 25, 2016 Dates of Hospitalization Date of Hospital Admission Dec 24, 2016 at 03:10 Date of Discharge: Dec 25, 2016 Providers: Admitting Physician: Otf Pedraza MD Primary Care Physician: Adithya Moreland MD Attending Physician: Alexei Cool MD Diagnosis at Time of Discharge Diagnosis at Time of Discharge acute dx Stercoral Colitis with significant stool burdens likely due to anticholinergic effect from psychiatric medicines chronic dx Anxiety with panic attacks Schizophrenia Seizure disorder Procedures XRay, CTs & MRIs Wet Read by ED physician X-Ray Abdominal Interpretation atelectasis at bilateral bases constipation no evidence of obstruction no hepatomegaly CT Abd / Pelvis Interpretation Nighthawk read: CONCLUSION: Long segment colonic wall thickening of the splenic flexure, nonspecific, possible colitis. Neoplasm is not excluded. Severe fecal loading of the capacious colon. Mariya De Luna MD 12/24/16. . Brief History HPI obtained by Dr. Pedraza 12/24 Clifton wells is a 31-year-old male with a past medical history significant for schizophrenia, bipolar disorder, psychosis, seizure disorder, anxiety and panic attacks who presented to [facility] emergency department via EMS for abdominal pain. The patient began experiencing lower abdominal pain three to four hours ago. He reports that his abdominal pain is intermittent and dull in quality. He rated the pain at + 5/10 in severity. His abdominal pain does not radiate. His abdominal pain is located in lower quadrants bilaterally. He is currently not in any pain. He denies headache, vision changes, sore throat, shortness of breath, chest pain, nausea, vomiting, fever, chills, night sweats, dysuria, diarrhea or constipation. His last bowel movement was 1-2 days ago. He reports that his bowel movement was hard and he had to strain a little bit. He has been taking all of his normal medications. He has no other complaints. Vital signs in the ER: Temperature 36.9. Pulse 105. Respiratory rate 16. Blood pressure 139/95. Pulse ox 94% on room air. The patient received 1 L of NS and ketorolac IV 30 mg 1[address] PCP [address] Dr. Adithya Moreland. . Hospital Course Clifton wells is a 31-year-old male with a past medical history significant for schizophrenia, bipolar disorder, psychosis, seizure disorder, anxiety and panic attacks who presented to [facility] emergency department via EMS for abdominal pain. pt was admitted with significant ileus causing severe abdominal pain. CT abdomen and pelvis with contrast demonstrated long segment colonic wall thickening of the splenic flexure, nonspecific, possible colitis and neoplasm is not excluded. Patient was started on GoLYTELY from ED, finished 4 L all the bottle which made him have significant bowel movement, relieved his abdominal pain completely. Since patient was very stable with no pain, tolerated diet, deemed safe for discharge to home without further GI intervention. Patient was encouraged to eat more vegetables and fruits, prescription for aggressive bowel regimen was given to titrate his bowel movement. It was believed that severe ileus was from anticholinergic effect from his psychiatric medicines. His psychiatric conditions seem to be stable during hospitalization. 1. Acute abdominal pain, present on admission. Active. - Likely high school admissions representative of has fecal impaction versus colitis versus less likely neoplasm. - Acute abdominal series demonstrated fecal impaction, as above. - - Patient was started in the ED on GoLYTELY bowel preparation for possible colonoscopy in the next several days. - Patient received ketorolac IV 30 mg x1. Not currently in pain. Avoid narcotics due to fecal impaction. - Started IV fluid hydration with NS at 100 mL/hr. - Day team to consider GI consult in the morning for possible colonoscopy to assess colonic wall thickening and possible colitis versus neoplasm. Chronic problems: 2. Anxiety with panic attacks, present on admission. Stable. - Continue clonazepam 1 mg twice daily once medication reconciliation is obtained. 3. Schizophrenia, present on admission. Stable. - Continue clozapine unknown dose and benztropine 1 mg twice daily once medication reconciliation is obtained.. 4. Seizure disorder, present on admission. Stable. - Continue Depakote unknown dose once medication reconciliation is obtained.. Medication reconciliation has not yet been obtained. Day team to reconcile medications. PRN antiemetics: Zofran and Maalox. PRN bowel regimen: Senna and MiraLAX. PRN analgesics: Tylenol. Patient is admitted under observation status with expected length of stay less than 2 midnights due to severity of presenting symptoms, risk of adverse event, and complexity of treatment plan. . Exam Vital Signs (Last) Date Time Temp Pulse Resp B/P Pulse Ox O2 Delivery O2 Flow Rate FiO2 12/25/16 12:41 36.8 92 15 116/76 93 Room Air Exam Patient was examined on the day of discharge Test 12/24/16 00:30 12/24/16 00:53 12/24/16 08:05 12/25/16 06:02 Prothrombin Time 10.7sec (8.1-12.5) Prothromb Time International Ratio 1.00ratio Hemoglobin A1c 5.8% (4.8-5.6) Magnesium Level 2.2mg/dL (1.6-2.6) Lipase 20U/L (13-60) Urine Color Dark yellow (YELLOW) Urine Appearance Cloudy (CLEAR,HAZY) Urine pH Color interference Urine Specific [place] 1.037 (1.003-1.035) Urine Protein Color interferencemg/dL Urine Glucose (UA) Color interferencemg/dL Urine Ketones Color interferencemg/dL Urine Occult Blood Color interference Urine Nitrite Color interference Urine Bilirubin Color interference Urine Urobilinogen Color interferencemg/dL Urine Leukocyte Esterase Color interference Urine RBC 3-10/hpf (0-2) Urine WBC 0-5/hpf (0-5) Urine Epithelial Cells Few/hpf (NONE-MOD) Urine Crystals None seen (NONE SEEN) Urine Bacteria Few/hpf (NONE-FEW) Urine Hyaline Casts None/lpf (NONE) Urine Granular Casts Occasional (NONE SEEN) Urine Waxy Casts None seen (NONE SEEN) Urine Red Blood Cell Casts None seen (NONE SEEN) Urine White Blood Cell Casts None seen (NONE SEEN) Urine Mucus Present (None Seen) Urine Trichomonas None seen (NONE SEEN) Urine Yeast None (NONE SEEN) Urinalysis Comment None Urine Culture Reflexed Not indicated White Blood Count 7.0th/mm3 (3.8-10.1) Red Blood Count 4.58mil/mm3 (4.40-5.80) Hemoglobin 13.8g/dL (13.8-17.2) Hematocrit 40.6% (41.0-50.0) Mean Corpuscular Volume 88.6fL (81-100) Mean Corpuscular Hemoglobin 30.1pg (27.0-35.0) Mean Corpuscular Hemoglobin Concent 34.0% (32.0-37.0) Red Cell Distribution Width 13.2% (12.3-15.4) Platelet Count 180bil/L (150-400) Neutrophils (%) (Auto) 57.4% (40-74) Lymphocytes (%) (Auto) 22.1% (14-46) Monocytes (%) (Auto) 18.7% (4-12) Eosinophils (%) (Auto) 1.4% (0-5) Basophils (%) (Auto) 0.1% (0-3) Sodium Level 141mEq/L (134-144) Potassium Level 4.3mEq/L (3.5-5.2) Chloride Level 106mEq/L (97-108) Carbon Dioxide Level 24mmol/L (18-29) Blood Urea Nitrogen 11mg/dL (6-20) Creatinine 0.65mg/dL (0.76-1.27) Estimat Glomerular Filtration Rate 154mL/min (>59) Glucose Level 100mg/dL (60-99) Calcium Level 8.6mg/dL (8.5-10.1) Total Bilirubin 0.2mg/dL (0.0-1.2) Aspartate Amino Transf (AST/SGOT) 26U/L (0-50) Alanine Aminotransferase (ALT/SGPT) 24U/L (0-44) Alkaline Phosphatase 33U/L (25-150) Total Protein 5.7g/dL (6.4-8.4) Albumin 3.8g/dL (3.4-5.0) Discharge Medications Discharge Medications Benztropine Mesylate (Benztropine Mesylate) 1 Mg Tablet 1 MG PO DAILY (Reported ) Benztropine Mesylate (Benztropine Mesylate) 1 Mg Tablet 1 MG PO HS (Reported) Clozapine (Clozapine) 100 Mg Tablet 200 MG PO DAILY (Reported) Clozapine (Clozapine) 100 Mg Tablet 300 MG PO HS (Reported) Divalproex ER (Divalproex ER) 500 Mg Tab.er.24h 1,500 MG PO HS (Reported) *DAILY DOSING ONLY* Swallowed whole without chewing to avoid local irritation of the mouth and throat. Fluoxetine (Fluoxetine) 40 Mg Capsule 40 MG PO DAILY (Reported) Polyethylene Glycol 3350 (Miralax) 17 Gm Powd.pack 17 GM PO DAILY Prescribed by: ALEXEI COOL MD Sennosides (Senna) 8.6 Mg Tablet 17.2 MG PO BID Prescribed by: ALEXEI COOL MD As needed Clonazepam (Clonazepam) 1 Mg Tablet 1 MG PO BID PRN PRN For Anxiety (Reported) Docusate Sodium (Colace) 100 Mg Capsule 100 MG PO BID PRN PRN For Constipation Prescribed by: ALEXEI COOL MD Followup Plan Disposition: Home Discharge Diet: No restrictions Discharge Activity: No restrictions Patient Instructions You were hospitalized with severe abdominal pain likely due to large stools burden in your colon and inflammation. You responded well with GoLYTELY solution , made multiple BM appropriately Please continue aggressive bowel regimen as prescribed, as your condition are likely to continue with your psychiatric medicines. Take Colace 100mg twice a day, Senna 16.2mg twice a day. Take Miralax twice a day. If you start seeing loose stools, please adjust these medicine frequency to daily. Please follow up with your primary doctor in 1-2weeks Follow-up Provider: Adithya Moreland MD Follow-up with PCP in: 1 week Time spent 65 minutes Alexei Cool MD Dec 25, 2016 16:07
== END 2016-12-25 15:30 | disposition home or self-care (01) ==
LOC: SED 23:58 → EDBD 23:58 → OSC 12-24 03:10 → INTOOBSV 12-24 03:10
PROVIDERS: ADMIT Hospitalist; ATTEND Internal Medicine
DX: K52.89 Other specified noninfective gastroenteritis and colitis (principal); R10.9 Unspecified abdominal pain; F20.9 Schizophrenia, unspecified; F31.9 Bipolar disorder, unspecified; F29 Unspecified psychosis not due to a substance or known physiological condition; G40.909 Epilepsy, unspecified, not intractable, without status epilepticus; F41.9 Anxiety disorder, unspecified; F41.0 Panic disorder [episodic paroxysmal anxiety]; J45.909 Unspecified asthma, uncomplicated; Z87.891 Personal history of nicotine dependence; Z79.899 Other long term (current) drug therapy
CPT/HCPCS: 36415; 74022; 74177; 80048; 80053; 81000; 83036; 83690; 83735; 85025; 85610; 96361; 96374; 99285; J1644; J1885; J7030; Q9967; S0136

== ENCOUNTER 2017-01-21 20:40 | Emergency (ER) | payer MEDICARE, MEDICAID ==
[~2017-01-21] VITALS: Ht 188 cm; Wt 113.6 kg
[~2017-01-21 20:40] MED LIST changes: -ALBU8.5H2 INHALATION; -AMOX-366 PO; -AZIT500T PO; -BENZ-12 PO; +BENZ1TAB7 PO; +CLOZ100T6 PO; -CLOZ50TA PO; -COG1 PO; -DEP500ER PO; -DIVA250T12 PO; +DIVA500T14 PO; +DOCU-41 PO; -DSS100 PO; +FLUO40CA PO; -LACT10SO60 PO; -LEVO500T16 PO; +POLY17PO6 PO; +SENN-133 PO; -ZIT250 PO; -[UNRECOGNIZED DRUG - CODE] PO
[2017-01-21 20:56] VITALS: BP 130/86; PULSE 115; RESP 16; O2SAT 95
--- NOTE | 2017-01-22 00:15 | ED.REPORT ---
HPI-General Illness Date of Service Jan 22, 2017 ED Provider: James Cruz MD A 31 year old male with a history of schizophrenia, bipolar disorder, psychosis , seizure disorder, anxiety and panic attacks is brought to the ED via EMS due to an anxiety attack onset prior to arrival. He also states that his auditory hallucinations have become more "heavy" today, and wanted to come to the ED to feel more stable. Additional symptoms include abdominal pain that is baseline, and shakes. He denies suicidal ideations, fever, nausea, or vomiting. Nursing Notes Stated Complaint: ANXIETY Chief Complaint: Psychiatric Complaint Nursing Notes Reviewed: Yes Allergies: Coded Allergies: No Known Allergies (Verified Allergy, Unknown, 01/21/17) Scheduled Benztropine Mesylate (Benztropine Mesylate) 1 Mg Tablet 1 MG PO DAILY Benztropine Mesylate (Benztropine Mesylate) 1 Mg Tablet 1 MG PO HS Clozapine (Clozapine) 100 Mg Tablet 200 MG PO DAILY Clozapine (Clozapine) 100 Mg Tablet 300 MG PO HS Divalproex ER (Divalproex ER) 500 Mg Tab.er.24h 1,500 MG PO HS *DAILY DOSING ONLY* Swallowed whole without chewing to avoid local irritation of the mouth and throat. Fluoxetine (Fluoxetine) 40 Mg Capsule 40 MG PO DAILY Polyethylene Glycol 3350 (Miralax) 17 Gm Powd.pack 17 GM PO DAILY Sennosides (Senna) 8.6 Mg Tablet 17.2 MG PO BID Scheduled PRN Clonazepam (Clonazepam) 1 Mg Tablet 1 MG PO BID PRN PRN For Anxiety Docusate Sodium (Colace) 100 Mg Capsule 100 MG PO BID PRN PRN For Constipation Olanzapine ODT (Zyprexa Zydis) 5 Mg Tablet 5 MG PO DAILY PRN PRN hallucinations General Time Seen by MD: 00:15 Chief Complaint Other (Anxiety attack) Hx Obtained From: Patient Arrived By: Ambulance Sudden in Onset?: Yes Onset Occurred: Just prior to arrival Context Related History: Reports Psychiatric history Recent Healthcare: No recent hospitalization Similar Sx Previous: Yes Past Medical History Patient History: FHx: bipolar disorder Past Medical History Notes: Reviewed and documentated persistent tachycardia since 2011. Past Medical History Bipolar mood disorder pneumonia Schizophrenia Psychosis seizure disorder anxiety panic attacks Reports: Asthma, Mental illness Past Surgical History No major surgeries Smoking History Former Smoker Social History The patient lives in an apartment alone. Alcohol Use: Denies alcohol use Drug Use: Denies drug use Other Social History: Lives alone, Local resident Ambulatory Status Independent Review of Systems Full Review of Systems Constitutional: Denies: Fever GI: Reports: Abdominal pain (baseline since hospitalization on 12/24/16), Denies: Nausea, Vomiting Neurologic: Reports: Shaking Psychiatric: Reports: Anxiety, Hallucinations, auditory, Denies: Suicidal ideation Complete sys rev & neg: except as marked. Physical Exam Vital Signs Vital Signs Date Time Temp Pulse Resp B/P Pulse Ox O2 Delivery O2 Flow Rate FiO2 01/22/17 01:36 37.0 108 16 136/82 98 Room Air 01/21/17 20:56 36.8 115 16 130/86 95 Room Air Initial VS: Reviewed Head / Eyes: Atraumatic, Normocephalic Neck: Supple, Full range of motion Extremities: Vascular intact, Neuro intact, No swelling, No tenderness Skin: Warm, Dry, No cyanosis General/Constitutional: Awake, Alert Respiratory / Chest: Atraumatic, Breath sounds NL, Breath sounds = bilat, No respiratory distress Cardiovascular: Heart rate NL, Regular rhythm, Heart sounds NL Neurologic: Oriented X3, Speech NL Psychiatric: Not suicidal, Not homicidal Abnormal Mood/Affect: Positive: Anxious (mild) Abnormal Thinking / Perception: Positive: Hallucinations, auditory Not agitated Re-Eval/Medical Decision Med Decision/Clinical Course 31-year-old with multiple ER visits with hallucinations and anxiety, presents with the same. He is reassured by being here. He is taken his nightly meds now and does not feel he needs anything additional. Provided with some 5 mg Zyprexa for occasional when necessary use for worsening hallucinations. Source of Hx: Old records Time of Eval: 00:27 Re-Evaluation/Progress Note: Discussed plan for discharge. Patient understands and agrees with plan. F/U instructions and RTER warnings given. All questions addressed at this time. Counseled Regarding: Diagnosis, Lab results, Need for follow-up, When/why to return to ED Discharge & Departure Shift Change Sign-Out Response to Therapy: Improved Primary Impression: Anxiety Additional Impression: Hallucinations Disposition: Home Discharge Condition All VS Reviewed: Yes Condition: Stable Additional Instructions: You may take a Zyprexa at night if needed to help suppress your hallucinations. Follow up with your doctor in the office. Return if any immediate issues. Referrals: Adithya Torres MD (PCP) Scribe Attestation Portions of this note were transcribed by Trisha Alejandre. I, Dr. Cruz, personally performed the history, physical exam and medical decision-making; I reviewed and confirmed the accuracy of the information in the transcribed note. copies to: Adithya Torres MD, Christopher W MD Jan 22, 2017 00:15 Trisha Alejandre Jan 22, 2017 00:30
[2017-01-22] MEDS ORDERED: OLANZapine Zydis ODT 5 mg Tablet PO ONE (00:35)
[2017-01-22] MEDS ORDERED: OLAN5TAB25 PO (01:26)
[2017-01-22 01:36] VITALS: BP 136/82; PULSE 108; RESP 16; O2SAT 98
== END 2017-01-22 01:39 | disposition home or self-care (01) ==
LOC: SED 20:40 → EDUNIT# 20:40 → EDBD 20:40 → SED 01-22 01:39
DX: F41.0 Panic disorder [episodic paroxysmal anxiety] (principal); R44.0 Auditory hallucinations; R10.9 Unspecified abdominal pain; J45.909 Unspecified asthma, uncomplicated; F31.9 Bipolar disorder, unspecified; F20.9 Schizophrenia, unspecified; Z87.891 Personal history of nicotine dependence; Z87.01 Personal history of pneumonia (recurrent)

== ENCOUNTER 2017-01-29 00:18 | Emergency (ER) | payer MEDICARE, MEDICAID ==
[~2017-01-29] VITALS: Ht 188 cm; Wt 113.6 kg
[~2017-01-29 00:18] MED LIST changes: +OLAN5TAB25 PO
[2017-01-29 00:33] VITALS: BP 138/81; PULSE 120; RESP 24; O2SAT 96
--- NOTE | 2017-01-29 01:14 | ED.REPORT ---
HPI-Psychiatric Illness Date of Service Jan 29, 2017 ED Provider: Vince Marie MD Pt is a 31 year old male with a history of schizophrenia, epilepsy, bipolar disorder, anxiety and depression who presents to the ED via EMS complaining of a panic attack onset prior to arrival. He feels concerned about his auditory hallucinations that are similar to his previous chronic symptoms even though he took his medications today. Additional symptoms include anxiety. He denies suicidal ideation. Nursing Notes Stated Complaint: HALLUCINATIONS Chief Complaint: Psychiatric Complaint Nursing Notes Reviewed: Yes Allergies: Coded Allergies: No Known Allergies (Verified Allergy, Unknown, 01/21/17) Scheduled Benztropine Mesylate (Benztropine Mesylate) 1 Mg Tablet 1 MG PO DAILY Benztropine Mesylate (Benztropine Mesylate) 1 Mg Tablet 1 MG PO HS Clozapine (Clozapine) 100 Mg Tablet 200 MG PO DAILY Clozapine (Clozapine) 100 Mg Tablet 300 MG PO HS Divalproex ER (Divalproex ER) 500 Mg Tab.er.24h 1,500 MG PO HS *DAILY DOSING ONLY* Swallowed whole without chewing to avoid local irritation of the mouth and throat. Fluoxetine (Fluoxetine) 40 Mg Capsule 40 MG PO DAILY Polyethylene Glycol 3350 (Miralax) 17 Gm Powd.pack 17 GM PO DAILY Sennosides (Senna) 8.6 Mg Tablet 17.2 MG PO BID Scheduled PRN Clonazepam (Clonazepam) 1 Mg Tablet 1 MG PO BID PRN PRN For Anxiety Docusate Sodium (Colace) 100 Mg Capsule 100 MG PO BID PRN PRN For Constipation Olanzapine ODT (Zyprexa Zydis) 5 Mg Tablet 5 MG PO DAILY PRN PRN hallucinations General Time Seen by MD: 00:25 Chief Complaint Other (Panic attack) Hx Obtained From: Patient Arrived By: Ambulance Onset Occurred: Just prior to arrival Severity: Current: No pain currently Severity: Maximum: No pain Recent Healthcare: Recent doctor visit Similar Sx Previous: Yes Risk-Psychiatric Illness Suicide Risk Stratification RF Statements: Risk factors N/A (not suicidal) Past Medical History Patient History: FHx: bipolar disorder Past Medical History Notes: Reviewed and documentated persistent tachycardia since 2011. Past Medical History Bipolar mood disorder pneumonia Schizophrenia Psychosis seizure disorder anxiety panic attacks Reports: Asthma, Mental illness Past Surgical History No major surgeries Smoking History Former Smoker Social History The patient lives in an apartment alone. Alcohol Use: Denies alcohol use Drug Use: Denies drug use Other Social History: Lives alone, Local resident Ambulatory Status Independent Review of Systems Panic attack Constitutional: Denies: Chills, Fever Psychiatric: Reports: Anxiety, Hallucinations, auditory, Denies: Change mental status, Homicidal ideation, Suicidal ideation Complete sys rev & neg: except as marked. Physical Exam Initial Vital Signs Vital Signs (First) Date Time Temp Pulse Resp B/P Pulse Ox O2 Delivery O2 Flow Rate FiO2 01/29/17 00:33 36.2 120 24 138/81 96 Room Air Initial VS: Reviewed Head / Eyes: Atraumatic, Normocephalic Neck: Supple, Full range of motion Extremities: Vascular intact, Neuro intact, No swelling, No tenderness Skin: Warm, Dry, No cyanosis General/Constitutional: Awake, No acute distress Neurologic: Oriented X3, No motor deficits, No sensory deficits Slurred, sleepy speech that improved as he woke up Psychiatric: Not suicidal, Not homicidal Appears sedated, consistent with the time of day Not anxious at this time Respiratory / Chest: Atraumatic, Breath sounds NL, Breath sounds = bilat, No respiratory distress Cardiovascular: Heart rate NL, Regular rhythm, Heart sounds NL Re-Eval/Medical Decision Med Decision/Clinical Course 31-year-old male with a long history of anxiety and panic disorders. He frequently gets concerned and upset at night and comes to the emergency room. He had calmed considerably by the time he got here. He slept here for a few hours, he considers this a safe place. He is now improved and ready to go home. Re-Evaluation/Progress : Re-Evaluation/Progress Note: Discussed plan for discharge. Patient understands and agrees to plan. All questions were addressed. Counseled Regarding: Diagnosis, Lab results, Need for follow-up, When/why to return to ED Discharge & Departure Impression: Primary Impression: Anxiety )( Condition at Discharge: No danger to self, No danger to others Disposition: Home Discharge Condition All VS Reviewed: Yes Condition: Stable Patient Instructions: Anxiety (ED) Additional Instructions: Your symptoms seem to be due to anxiety/panic attack. Could safely go home at this time. Follow-up with your regular doctor as needed. Referrals: Adithya Torres MD (PCP) Scribe Attestation Portions of this note were transcribed by Trisha Alejandre. I, Dr. Marie, personally performed the history, physical exam and medical decision-making; I reviewed and confirmed the accuracy of the information in the transcribed note. copies to: Adithya Torres MD, Vince Cat MD Jan 29, 2017 01:14 Trisha Alejandre Jan 29, 2017 01:24 Vernell Bennett Jan 29, 2017 05:11
[2017-01-29 07:02] VITALS: BP 127/84; PULSE 85; RESP 16; O2SAT 96
== END 2017-01-29 06:30 | disposition home or self-care (01) ==
LOC: EDBD 00:18 → SED 00:18
DX: F41.0 Panic disorder [episodic paroxysmal anxiety] (principal); R44.0 Auditory hallucinations; J45.909 Unspecified asthma, uncomplicated; F20.9 Schizophrenia, unspecified; F31.9 Bipolar disorder, unspecified; Z87.01 Personal history of pneumonia (recurrent); Z87.891 Personal history of nicotine dependence

== ENCOUNTER 2017-01-30 00:24 | Emergency (ER) | payer MEDICARE, MEDICAID ==
[2017-01-30 00:32] VITALS: BP 134/87; PULSE 102; RESP 20; O2SAT 94
--- NOTE | 2017-01-30 00:46 | ED.REPORT ---
HPI-Psychiatric Illness Date of Service Jan 30, 2017 ED Provider: Vince Marie MD Pt is a 31 year old male with a history of bipolar mood disorder, schizophrenia , anxiety, and panic attacks who presents to the ED via EMS complaining of anxiety onset prior to arrival. He c/o associated hallucinations. He denies HI and SI. The pt reports that he does not have anyone to call or talk to when he experiences his symptoms. Per pt, he experiences intermittent episodes of anxiety with panic attacks. He denies drug use, and reports that he has been taking his regular medication. Pt presented to the ED on 01/29/17 with his symptoms and he was discharged with a diagnosis of anxiety. Nursing Notes Stated Complaint: ANXIETY, HALLUCINATING Chief Complaint: Psychiatric Complaint Nursing Notes Reviewed: Yes Allergies: Coded Allergies: No Known Allergies (Verified Allergy, Unknown, 01/21/17) Scheduled Benztropine Mesylate (Benztropine Mesylate) 1 Mg Tablet 1 MG PO DAILY Benztropine Mesylate (Benztropine Mesylate) 1 Mg Tablet 1 MG PO HS Clozapine (Clozapine) 100 Mg Tablet 200 MG PO DAILY Clozapine (Clozapine) 100 Mg Tablet 300 MG PO HS Divalproex ER (Divalproex ER) 500 Mg Tab.er.24h 1,500 MG PO HS *DAILY DOSING ONLY* Swallowed whole without chewing to avoid local irritation of the mouth and throat. Fluoxetine (Fluoxetine) 40 Mg Capsule 40 MG PO DAILY Polyethylene Glycol 3350 (Miralax) 17 Gm Powd.pack 17 GM PO DAILY Sennosides (Senna) 8.6 Mg Tablet 17.2 MG PO BID Scheduled PRN Clonazepam (Clonazepam) 1 Mg Tablet 1 MG PO BID PRN PRN For Anxiety Docusate Sodium (Colace) 100 Mg Capsule 100 MG PO BID PRN PRN For Constipation Olanzapine ODT (Zyprexa Zydis) 5 Mg Tablet 5 MG PO DAILY PRN PRN hallucinations General Time Seen by MD: 00:29 Chief Complaint Anxious Hx Obtained From: Patient, EMS Arrived By: Ambulance Onset Occurred: Just prior to arrival Symptom Duration: Duration unknown Severity: Current: No pain currently Severity: Maximum: No pain Recent Healthcare: Recent doctor visit Similar Sx Previous: Yes Risk-Psychiatric Illness Suicide Risk Stratification Suicide Risk Factors - Adult: No: Alcohol use, Substance abuse RF Statements: Risk factors reviewed Past Medical History Patient History: FHx: bipolar disorder Past Medical History Notes: Reviewed and documentated persistent tachycardia since 2011. Past Medical History Bipolar mood disorder pneumonia Schizophrenia Psychosis seizure disorder anxiety panic attacks Reports: Asthma, Mental illness Past Surgical History No major surgeries Smoking History Former Smoker Social History The patient lives in an apartment alone. Alcohol Use: Denies alcohol use Drug Use: Denies drug use Other Social History: Lives alone, Local resident Ambulatory Status Independent Review of Systems + hallucinations Psychiatric: Reports: Anxiety, Denies: Homicidal ideation, Suicidal ideation Complete sys rev & neg: except as marked. Physical Exam Initial Vital Signs Vital Signs (First) Date Time Temp Pulse Resp B/P Pulse Ox O2 Delivery O2 Flow Rate FiO2 01/30/17 00:32 36.8 102 20 134/87 94 Room Air Initial VS: Reviewed Head / Eyes: Atraumatic, Normocephalic Neck: Supple, Full range of motion Cardiovascular: Regular rate & rhythm, Heart sounds normal, Intact distal pulses Extremities: Vascular intact, Neuro intact Skin: Warm, Dry, No cyanosis General/Constitutional: Awake, Alert Mildly anxious and stressed. Neurologic: CN II - XII intact Psychiatric: Not suicidal, No hallucinations Respiratory / Chest: Atraumatic, Breath sounds NL, Breath sounds = bilat, No respiratory distress Re-Eval/Medical Decision Source of Hx: Old records Re-Evaluation/Progress : Time of Eval: 01:09 Re-Evaluation/Progress Note: Pt is feeling better and would like to rest. Informed pt of ability to call a hotline for help when he experiences symptoms. All questions addressed. Counseled Regarding: Diagnosis Discharge & Departure Impression: Primary Impression: Anxiety )( Condition at Discharge: No danger to self, No danger to others, No suicidal ideation, No homicidal ideation Discharge Condition All VS Reviewed: Yes Condition: Stable Additional Instructions: If you feel anxious call the crisis line at . There are trained professional social workers on hand at all times to talk to you about your problems. This may be helpful in getting through your anxiety and panic attacks. Referrals: Adithya Torres MD (PCP) Scribe Attestation Portions of this note were transcribed by Eve Conti. I, Dr. Marie personally performed the history, physical exam and medical decision-making; I reviewed and confirmed the accuracy of the information in the transcribed note. Signed by: Ozzy Wang, 01/30/17. copies to: Adithya Torres MD, Vince Cat MD Jan 30, 2017 00:46 Eve Pruitt Jan 30, 2017 01:17
== END 2017-01-30 06:07 | disposition home or self-care (01) ==
LOC: SED 00:24
DX: F41.9 Anxiety disorder, unspecified (principal); J45.909 Unspecified asthma, uncomplicated; F31.9 Bipolar disorder, unspecified; F20.9 Schizophrenia, unspecified; Z87.01 Personal history of pneumonia (recurrent); Z87.891 Personal history of nicotine dependence

== ENCOUNTER 2017-02-02 02:26 | Emergency (ER) | payer MEDICARE, MEDICAID ==
[~2017-02-02] VITALS: Ht 188 cm; Wt 109.1 kg
[2017-02-02 02:33] VITALS: BP 137/86; PULSE 111; RESP 18; O2SAT 94
--- NOTE | 2017-02-02 02:57 | ED.REPORT ---
HPI-Psychiatric Illness Date of Service Feb 02, 2017 ED Provider: Vince Marie MD The pt is a 31 y/o male w/ a hx of bipolar mood disorder, schizophrenia, anxiety , and panic attacks presenting to the ED due to auditory and visual hallucinations. He describes hallucinating about his knife at home. Denies suicidal or homicidal ideations. The pt was just here in the ED 3 days ago for anxiety. Nursing Notes Stated Complaint: HALLUCINATIONS Chief Complaint: Auditory and visual hallucinations Nursing Notes Reviewed: Yes Allergies: Coded Allergies: No Known Allergies (Verified Allergy, Unknown, 01/21/17) Scheduled Benztropine Mesylate (Benztropine Mesylate) 1 Mg Tablet 1 MG PO DAILY Benztropine Mesylate (Benztropine Mesylate) 1 Mg Tablet 1 MG PO HS Clozapine (Clozapine) 100 Mg Tablet 200 MG PO DAILY Clozapine (Clozapine) 100 Mg Tablet 300 MG PO HS Divalproex ER (Divalproex ER) 500 Mg Tab.er.24h 1,500 MG PO HS *DAILY DOSING ONLY* Swallowed whole without chewing to avoid local irritation of the mouth and throat. Fluoxetine (Fluoxetine) 40 Mg Capsule 40 MG PO DAILY Polyethylene Glycol 3350 (Miralax) 17 Gm Powd.pack 17 GM PO DAILY Sennosides (Senna) 8.6 Mg Tablet 17.2 MG PO BID Scheduled PRN Clonazepam (Clonazepam) 1 Mg Tablet 1 MG PO BID PRN PRN For Anxiety Docusate Sodium (Colace) 100 Mg Capsule 100 MG PO BID PRN PRN For Constipation Olanzapine ODT (Zyprexa Zydis) 5 Mg Tablet 5 MG PO DAILY PRN PRN hallucinations General Time Seen by MD: 02:55 Chief Complaint Other (Auditory and visual hallucinations ) Hx Obtained From: Patient Arrived By: Walk-in Onset Occurred: Just prior to arrival Symptom Duration: Since onset Recent Healthcare: No recent hospitalization, Recent doctor visit Similar Sx Previous: Yes Risk-Psychiatric Illness Suicide Risk Stratification RF Statements: No risk factors Past Medical History Patient History: FHx: bipolar disorder Past Medical History Notes: Reviewed and documentated persistent tachycardia since 2011. Past Medical History Bipolar mood disorder pneumonia Schizophrenia Psychosis seizure disorder anxiety panic attacks Reports: Asthma, Mental illness Past Surgical History No major surgeries Smoking History Former Smoker Social History The patient lives in an apartment alone. Alcohol Use: Denies alcohol use Drug Use: Denies drug use Other Social History: Lives alone, Local resident Ambulatory Status Independent Review of Systems Psychiatric: Reports: Hallucinations, auditory, Hallucinations, visual, Denies: Homicidal ideation, Suicidal ideation Complete sys rev & neg: except as marked. Physical Exam Initial Vital Signs Vital Signs (First) Date Time Temp Pulse Resp B/P Pulse Ox O2 Delivery O2 Flow Rate FiO2 02/02/17 02:33 36.6 111 18 137/86 94 Room Air Initial VS: Reviewed, Vital signs abnormal Head / Eyes: Atraumatic, Normocephalic, PERRL ENT: Mucous membranes moist, Conjunctiva normal, No scleral icterus Neck: Supple, Non-tender, Full range of motion Respiratory: Breath sounds normal, Clear to auscultation, No respiratory distress Cardiovascular: Regular rate & rhythm, Heart sounds normal, Intact distal pulses Extremities: Vascular intact, Neuro intact, No swelling, No tenderness Skin: Warm, Dry, No cyanosis General/Constitutional: Awake, Alert Pt is sedated and subdued; Neurologic: No motor deficits Psychiatric: Not suicidal, Not homicidal Pt is not currently experiencing hallucinations Interpretation & Diagnostics Lab Results Interpretation Test 02/02/17 03:15 Hold Urine Received (Received) Re-Eval/Medical Decision Med Decision/Clinical Course 31-year-old male who's been here 3 of the last 4 nights for anxiety, hallucinations, insomnia. His symptoms have resolved before he even gets here. He was encouraged to call the crisis line rather than 911 but it does not appear that he is done. He does not meet any shelter criteria. He is encouraged to follow-up with his regular doctor and discuss medication changes. Source of Hx: Old records Counseled Regarding: Diagnosis, Lab results, Need for follow-up, When/why to return to ED Discharge & Departure Impression: Primary Impression: Anxiety Additional Impressions: Insomnia Insomnia type: due to other mental disorder Qualified Code: F51.05 - Insomnia due to other mental disorder Acute psychosis )( Condition at Discharge: No danger to self, No danger to others, No suicidal ideation, No homicidal ideation Disposition: Home Discharge Condition All VS Reviewed: Yes Condition: Stable Patient Instructions: Anxiety (ED) Additional Instructions: Call the Crisis Line at if you feel this way again. Referrals: Adithya Torres MD (PCP) Scribe Attestation Portions of this note were transcribed by Angelito Juarez. I, Dr. Marie personally performed the history, physical exam and medical decision-making; I reviewed and confirmed the accuracy of the information in the transcribed note. copies to: Adithya Torres MD, Vince Cat MD Feb 02, 2017 02:57 Angelito Juarez Feb 02, 2017 03:02
[2017-02-02 06:42] VITALS: BP 133/68; PULSE 91; RESP 18; O2SAT 96
[2017-02-02] MEDS ORDERED: DOCU-41 PO (17:35)
[2017-02-02] MEDS ORDERED: KLO5T PO (17:35)
== END 2017-02-02 06:44 | disposition home or self-care (01) ==
LOC: SED 02:26 → EDBD 02:26 → SED 06:44
DX: F41.9 Anxiety disorder, unspecified (principal); F51.05 Insomnia due to other mental disorder; F23 Brief psychotic disorder; Z87.891 Personal history of nicotine dependence

== ENCOUNTER 2017-02-02 16:33 | Emergency (ER) | payer MEDICARE, MEDICAID ==
[~2017-02-02] VITALS: Ht 188 cm; Wt 113.6 kg
[2017-02-02 16:48] VITALS: BP 145/74; PULSE 112; RESP 20; O2SAT 96
--- NOTE | 2017-02-02 17:04 | ED.REPORT ---
HPI-General Illness Date of Service Feb 02, 2017 ED Provider: Daniel Castro MD The pt is a 44 y/o male with hx of depression, anxiety, schizophrenia, and bipolar disorder who presents to the ED via EMS for the third time for the evaluation of his hallucinations and anxiety in the past several days. The pt decided to come in to seek help regarding his future onset of symptoms. He reports no change since his last visit earlier today. The pt also says his condition is neither alleviated nor exacerbated with anything. The pt denies suicidal ideation, active hallucination, or any other somatic complaints at this time. Nursing Notes Stated Complaint: HALLUCINATIONS Chief Complaint: Psychiatric Complaint Nursing Notes Reviewed: Yes Allergies: Coded Allergies: No Known Allergies (Verified Allergy, Unknown, 01/21/17) Scheduled Benztropine Mesylate (Benztropine Mesylate) 1 Mg Tablet 1 MG PO DAILY Benztropine Mesylate (Benztropine Mesylate) 1 Mg Tablet 1 MG PO HS Clonazepam (Clonazepam) 0.5 Mg Tablet 0.5 MG PO BID Clozapine (Clozapine) 100 Mg Tablet 200 MG PO DAILY Clozapine (Clozapine) 100 Mg Tablet 300 MG PO HS Divalproex ER (Divalproex ER) 500 Mg Tab.er.24h 1,500 MG PO HS *DAILY DOSING ONLY* Swallowed whole without chewing to avoid local irritation of the mouth and throat. Docusate Sodium (Colace) 100 Mg Capsule 100 MG PO HS Fluoxetine (Fluoxetine) 40 Mg Capsule 40 MG PO DAILY General Time Seen by MD: 19:14 Chief Complaint Other (hallucination) Hx Obtained From: Patient, EMS Arrived By: Ambulance Sudden in Onset?: No Onset Occurred: Onset unknown Symptom Duration: Intermittent Recent Healthcare: No recent hospitalization, Recent doctor visit Similar Sx Previous: Yes Past Medical History Patient History: FHx: bipolar disorder Past Medical History Notes: Reviewed and documentated persistent tachycardia since 2011. Past Medical History Bipolar mood disorder pneumonia Schizophrenia Psychosis seizure disorder anxiety panic attacks Reports: Asthma, Mental illness Past Surgical History No major surgeries Smoking History Former Smoker Social History The patient lives in an apartment alone. Alcohol Use: Denies alcohol use Drug Use: Denies drug use Other Social History: Lives alone, Local resident Ambulatory Status Independent Review of Systems Full Review of Systems Constitutional: Denies: Chills, Fever Eyes: Denies: Blurred bilateral Ears / Nose / Throat: Denies: Sore throat Respiratory: Denies: Non-productive cough Cardiovascular: Denies: Chest pain GI: Denies: Abdominal pain, Vomiting Male: Denies Dysuria Musculoskeletal: Denies: Back pain Skin: Denies Rash Neurologic: Denies: Headache, Slurred speech Psychiatric: Reports: Anxiety, Denies: Hallucinations, auditory, Hallucinations, visual, Suicidal ideation Complete sys rev & neg: except as marked. Physical Exam Constitutional: Well-developed, well-nourished. Not diaphoretic. Head: Normocephalic and atraumatic. Mouth/Throat: Oropharynx is clear and moist. No oropharyngeal exudate. Eyes: EOM are normal. Pupils are equal, round, and reactive to light. Neck: Supple, no tracheal deviation. Cardiovascular: Normal rate, regular rhythm. Equal and intact distal pulses throughout. Pulmonary/Chest: Effort normal and breath sounds normal. No respiratory distress. Abdominal: Soft. No distension. There is no tenderness, rebound, or guarding. Bowel sounds present. Musculoskeletal: Range of motion grossly intact, moving all extremities. No edema or tenderness appreciated. Neurological: AOx3. Grossly nonfocal exam. Strength and sensation intact and equal to bilateral upper and lower extremities. Normal finger to nose testing. Skin: Warm and dry, no rashes or pallor appreciated. Psychiatric: Flat affect otherwise appropriate. No suicidal ideations, homicidal ideations. No active hallucinations. Vital Signs Vital Signs Date Time Temp Pulse Resp B/P Pulse Ox O2 Delivery O2 Flow Rate FiO2 02/02/17 16:48 37 112 20 145/74 96 Room Air Initial VS: Reviewed Interpretation & Diagnostics Lab Results Interpretation Test 02/02/17 19:37 Hold Urine Received (Received) Re-Eval/Medical Decision Med Decision/Clinical Course In summary, 31-year-old male with a long-standing history of bipolar disorder, schizophrenia presenting to the ED for evaluation of anxiety and hallucinations , not present at this time. When asked why he came back in today, states that he wanted to be sure that everything was okay. Vehemently denies any active hallucinations at the time and aside from a somewhat flat affect, is appropriate , alert, and interactive. Mildly tachycardic here, however this has been documented in the past to be present with him regularly and he has no associated symptoms at this time. Denies ingestion of any illicit substances or other drugs. No suicidal ideations, no homicidal ideations. Social work consulted; appreciated their involvement. They arranged for him to follow up with [facility] on Saturday. Patient is agreeable to this and will discuss further treatment going forward with him at that time. Plan discharge home with very careful return precautions, PCP follow-up in addition to follow-up at [facility]. Patient agreeable to the plan as stated, no further questions. Source of Hx: Old records Time of Eval: 19:30 Re-Evaluation/Progress Note: Pt rechecked. Informed pt of diagnosis and plan for discharge. The pt understands and agrees with plan for discharge. F/U instructions and RTER warnings given. All questions addressed at this time. Consultation : Consulted With: hollow handle bench worker Call Returned at: 17:13 Note: Spoked to the social science analyst regarding the pt's plan. Counseled Regarding: Diagnosis, Need for follow-up, When/why to return to ED Discharge & Departure Primary Impression: Anxiety Additional Impression: Hallucinations Disposition: Home Discharge Condition All VS Reviewed: Yes Condition: Improved Patient Instructions: Anxiety (ED), Hallucinations (ED) Additional Instructions: Thank you for allowing us to be a part of your care today. As discussed with our social science analyst, Rachid, please follow-up with [facility] on Saturday. I am glad you are feeling better and not having any symptoms right now. Return to the emergency department if you develop any thoughts of wanting to hurt herself or anybody else, or if you feel unsafe, or if there is anything else of concern to you. Referrals: Adithya Torres MD (PCP) [facility] Scribkeegan Attestation Portions of this note were transcribed by Deanne Monte and Britt Conley. I, Dr. Daniel Castro personally performed the history, physical exam and medical decision-making; I reviewed and confirmed the accuracy of the information in the transcribed note. Signed by: Ozzy Mcdaniels, 02/02/17. copies to: Adithya Torres MD ; [facility] Daniel Castro MD Feb 02, 2017 17:04 Deanne Monte Feb 02, 2017 19:21
[2017-02-02] MEDS ORDERED: DOCU-41 PO (17:35)
[2017-02-02] MEDS ORDERED: KLO5T PO (17:35)
== END 2017-02-02 20:22 | disposition home or self-care (01) ==
LOC: EDBD 16:33 → SED 16:33 → EDUNIT# 16:33 → SED 20:22
DX: F41.9 Anxiety disorder, unspecified (principal); R44.3 Hallucinations, unspecified; J45.909 Unspecified asthma, uncomplicated; F31.9 Bipolar disorder, unspecified; F20.9 Schizophrenia, unspecified; Z87.01 Personal history of pneumonia (recurrent); Z87.891 Personal history of nicotine dependence